=== PATIENT | male | born 1975 | race Caucasian/White ===

== ENCOUNTER 2017-02-07 14:02 | Outpatient (CLI) | payer OTHER, MEDICAID | END 2017-02-07 14:03 | disposition home or self-care (01) | DX: M17.11 Unilateral primary osteoarthritis, right knee (principal) ==

== ENCOUNTER 2017-03-28 12:52 | Outpatient (CLI) | payer MEDICAID | END 2017-03-28 12:53 | disposition home or self-care (01) | DX: M17.11 Unilateral primary osteoarthritis, right knee (principal); S83.241A Other tear of medial meniscus, current injury, right knee, initial encounter; M25.461 Effusion, right knee ==

== ENCOUNTER 2020-04-08 01:10 | Emergency (ER) | payer SELFPAY ==
--- NOTE | 2020-04-08 01:12 | ED Physician Documentation ---
History of Present Illness - Stated complaint Stated Complaint: ABD PX - History obtained from History obtained from: Patient (Patient is a 45-year-old male presents with a chief complaint of abdominal pain after he ate spaghetti tonight. He denies any syncopal episodes or hematuria or flank pain he does report nausea without vomiting denies diarrhea or constipation denies any history of previous abdominal surgeries. Denies any chest pain currently but does report one episode of left-sided chest pain previously that is since resolved. Denies any history of pulmonary embolism or DVT denies any symptoms such as dark urine or tomás colored stools or any jaundice-like symptoms.) Review of Systems Constitutional: reports: Reviewed and negative Eyes: reports: Reviewed and negative Ears: reports: Reviewed and negative Nose: reports: Reviewed and negative Throat: reports: Reviewed and negative Cardiac: reports: Chest pain / pressure Respiratory: reports: Reviewed and negative GI: reports: Abdominal Pain, Nausea : reports: Reviewed and negative Skin: reports: Reviewed and negative Musculoskeletal: reports: Reviewed and negative Neurologic: reports: Reviewed and negative Psychiatric: reports: Reviewed and negative Endocrine: reports: Reviewed and negative Immunocompromised: reports: Reviewed and negative PD PAST MEDICAL HISTORY - Present Medications Home Medications: Ambulatory Orders Medication Instructions Recorded Confirmed Dicyclomine [Bentyl] 10 mg PO QID PRN #7 capsule 04/08/20 Ondansetron Odt [Zofran Odt] 4 mg TL Q6H PRN #10 tablet 04/08/20 - Allergies Allergies/Adverse Reactions: Allergies Allergy/AdvReac Type Severity Reaction Status Date / Time No Known Drug Allergies Allergy Verified 04/08/20 01:22 PD ED PE NORMAL - Vitals Vital signs reviewed: Yes - General General: Alert and oriented X 3, No acute distress, Well developed/nourished - HEENT HEENT: Atraumatic, PERRL - Neck Neck: Supple, no meningeal sign, No JVD - Cardiac Cardiac: RRR, No murmur, Strong equal pulses - Respiratory Respiratory: No respiratory distress, Clear bilaterally - Abdomen Abdomen: Other (The abdomen soft its diffusely tender in the epigastrium there is no ecchymosis there is no midline abdominal pulsatile mass the abdomen soft he has diminished bowel sounds he is voluntarily guarding there is no rebounding no hepatosplenomegaly no CVA tenderness) - Back Back: No CVA TTP, No spinal TTP - Derm Derm: Normal color, Warm and dry, No rash - Extremities Extremities: No deformity, No tenderness to palpate, Normal ROM s pain, No edema, No calf tenderness / cord - Neuro Neuro: Alert and oriented X 3, 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, No motor deficit, No sensory deficit, Normal speech - Psych Psych: Normal mood, Normal affect Results - Vitals Vitals: Vital Signs - 24 hr 04/08/20 04/08/20 04/08/20 01:21 01:42 03:09 Temperature 37.1 C Heart Rate 73 83 77 Respiratory 24 22 18 Rate Blood Pressure 198/116 H 196/113 H 185/115 H O2 Saturation 98 98 93 04/08/20 04:56 Temperature Heart Rate 70 Respiratory 18 Rate Blood Pressure 155/92 H O2 Saturation 96 Oxygen O2 Source Room air - EKG (time done) 01:23 Rate: Other (No STEMI) - Labs Labs: Laboratory Tests 04/08/20 04/08/20 04/08/20 01:35 01:35 01:35 WBC 9.4 RBC 4.90 Hgb 14.7 Hct 42.5 MCV 86.7 MCH 30.0 MCHC 34.6 RDW 13.3 Plt Count 204 MPV 11.2 Neut # (Auto) 7.0 H Lymph # (Auto) 1.7 [place] # (Auto) 0.6 Eos # (Auto) 0.1 Baso # (Auto) 0.0 Absolute Nucleated RBC 0.00 Nucleated RBC % 0.0 PT 12.5 INR 1.1 APTT 29.7 Sodium 136 Potassium 3.2 L Chloride 100 L Carbon Dioxide 28 Anion Gap 8.0 BUN 16 Creatinine 0.7 Estimated GFR (MDRD) 123 Glucose 137 H Lactic Acid Calcium 8.7 Total Bilirubin 0.6 AST 29 ALT 55 Alkaline Phosphatase 77 Troponin I High Sens Total Protein 7.7 Albumin 4.0 Globulin 3.7 Albumin/Globulin Ratio 1.1 Lipase 27 Urine Color Urine Clarity Urine pH Ur Specific [place] Urine Protein Urine Glucose (UA) Urine Ketones Urine Occult Blood Urine Nitrite Urine Bilirubin Urine Urobilinogen Ur Leukocyte Esterase Ur Microscopic Review Urine Culture Comments Urine Opiates Screen Ur Oxycodone Screen Urine Methadone Screen Ur Propoxyphene Screen Ur Barbiturates Screen Ur Tricyclics Screen Ur Phencyclidine Scrn Ur Amphetamine Screen U Methamphetamines Scrn U Benzodiazepines Scrn Urine Cocaine Screen U Cannabinoids Screen Ethyl Alcohol < 5.0 04/08/20 04/08/20 04/08/20 01:35 01:55 02:53 WBC RBC Hgb Hct MCV MCH MCHC RDW Plt Count MPV Neut # (Auto) Lymph # (Auto) [place] # (Auto) Eos # (Auto) Baso # (Auto) Absolute Nucleated RBC Nucleated RBC % PT INR APTT Sodium Potassium Chloride Carbon Dioxide Anion Gap BUN Creatinine Estimated GFR (MDRD) Glucose Lactic Acid 1.5 Calcium Total Bilirubin AST ALT Alkaline Phosphatase Troponin I High Sens 8.5 Total Protein Albumin Globulin Albumin/Globulin Ratio Lipase Urine Color YELLOW Urine Clarity CLEAR Urine pH 6.5 Ur Specific [place] 1.020 Urine Protein NEGATIVE Urine Glucose (UA) NEGATIVE Urine Ketones NEGATIVE Urine Occult Blood NEGATIVE Urine Nitrite NEGATIVE Urine Bilirubin NEGATIVE Urine Urobilinogen 0.2 (NORMAL) Ur Leukocyte Esterase NEGATIVE Ur Microscopic Review NOT INDICATED Urine Culture Comments NOT INDICATED Urine Opiates Screen NEGATIVE Ur Oxycodone Screen NEGATIVE Urine Methadone Screen NEGATIVE Ur Propoxyphene Screen NEGATIVE Ur Barbiturates Screen NEGATIVE Ur Tricyclics Screen NEGATIVE Ur Phencyclidine Scrn NEGATIVE Ur Amphetamine Screen NEGATIVE U Methamphetamines Scrn NEGATIVE U Benzodiazepines Scrn NEGATIVE Urine Cocaine Screen NEGATIVE U Cannabinoids Screen NEGATIVE Ethyl Alcohol PD MEDICAL DECISION MAKING - ED course Complexity details: reviewed results, re-evaluated patient (pain improved), considered differential (Patient with epigastric pain after eating differential diagnosis would be GERD, gastritis, peptic ulcer disease, cholecystitis, ch olelithiasis, pancreatitis unlikely but also on the differential would be ACS.), d/w patient (unsure of Etiology of the patient's pain is lab work and imaging are unremarkable his pain is improved at this point and he feels good enough to go home will encourage close follow-up and he should return the emergency department with any concerns.) Departure - Departure Disposition: 01 Home, Self Care Clinical Impression: Abdominal pain Qualifiers: Abdominal location: unspecified location Qualified Code(s): R10.9 - Unspecified abdominal pain Condition: Stable Instructions: ED Abdominal Pain Unkn Cause Follow-Up: your, doctor [Other] Prescriptions: Dicyclomine [Bentyl] 10 mg PO QID PRN #7 capsule PRN Reason: Abdominal Pain Ondansetron Odt [Zofran Odt] 4 mg TL Q6H PRN #10 tablet PRN Reason: Nausea / Vomiting
[2020-04-08] MEDS ORDERED: SODIUM CHLORIDE 0.9% 1,000 ML IV ONE (01:43)
[2020-04-08] MEDS ORDERED: ONDANSETRON 4 MG/2 ML VIAL IVP STA (01:43)
[2020-04-08] MEDS ORDERED: MORPHINE 2 MG/ML CARPUJECT IVP STA (01:43)
[2020-04-08 01:46] LABS: BASOPHILS % (AUTO) 0.4 %; EOSINOPHILS # (AUTO) 0.1 10^3/uL (0.0-0.7); EOSINOPHILS % (AUTO) 1.1 %; HGB - HEMOGLOBIN 14.7 g/dL (14.0-18.0); LYMPHOCYTES # (AUTO) 1.7 10^3/uL (1.5-3.5); LYMPHOCYTES % (AUTO) 17.5 %; MEAN CORPUSCULAR HGB CONC 34.6 g/dL (32.0-36.0); MEAN CORPUSCULAR VOLUME 86.7 fL (80.0-94.0); MEAN PLATELET VOLUME 11.2 fL (7.4-11.4); MONOCYTES # (AUTO) 0.6 10^3/uL (0.0-1.0); MONOCYTES % (AUTO) 6.8 %; NEUTROPHILS % (AUTO) 73.9 %; PLT - PLATELET COUNT 204 10^3/uL (130-450); RED CELL DISTRIBUTION WIDTH 13.3 % (12.0-15.0); WHITE BLOOD COUNT 9.4 x10^3/uL (4.8-10.8)
[2020-04-08 01:55] LABS: INR 1.1 (0.8-1.2); PT - PROTHROMBIN TIME 12.5 secs (9.9-12.6)
[2020-04-08 01:56] LABS: ALBUMIN/GLOBULIN RATIO 1.1 (1.0-2.2); ALKALINE PHOSPHATASE 77 IU/L (42-121); ALT ALANINE AMINOTRANSFERASE 55 IU/L (10-60); AST ASPARTATE AMINOTRANSFERASE 29 IU/L (10-42); BILIRUBIN,TOTAL 0.6 mg/dL (0.2-1.0); BUN - BLOOD UREA NITROGEN 16 mg/dL (6-20); CALCIUM 8.7 mg/dL (8.5-10.3); CARBON DIOXIDE - CO2 28 mmol/L (21-32); CHLORIDE 100 mmol/L (101-111); CREATININE 0.7 mg/dL (0.6-1.2); GLUCOSE 137 mg/dL (70-100); LIPASE 27 U/L (22-51); SODIUM 136 mmol/L (135-145); TOTAL PROTEIN 7.7 g/dL (6.7-8.2)
[2020-04-08 02:02] LABS: PARTIAL THROMBOPLASTIN TIME 29.7 secs (24.9-33.3)
--- NOTE | 2020-04-08 02:15 | XRAY Report ---
Reason: cp Procedure Date: 04/08/2020 Accession Number: [id number] / [id number] Procedure: XR - Chest 1 View X-Ray CPT Code: 28460 Final Report FULL RESULT: EXAM: CHEST RADIOGRAPHY EXAM DATE: 04/08/2020 02:02 AM CLINICAL HISTORY: Chest pain. COMPARISON: None. TECHNIQUE: 1 view. FINDINGS: Lungs/Pleura: Clear lungs. No pleural effusion. No pneumothorax. Mediastinum: Within exam limitations, the cardiomediastinal contour is normal. Other: None. IMPRESSION: No acute cardiopulmonary process. RADIA
[2020-04-08] MEDS ORDERED: diphenhydrAMINE ELIXIR 25 MG/10 ML UDC PO STA (02:25)
[2020-04-08] MEDS ORDERED: MAG HYDROX/AL HYDROX/SIMETH 30 ML UDC PO STA (02:26)
[2020-04-08] MEDS ORDERED: LIDOCAINE VISCOUS 2% 15 ML UDC MM STA (02:26)
[2020-04-08] MEDS ORDERED: IOVERSOL 320 100 ML VIAL IVP ONE ×2 (02:27→03:14)
[2020-04-08] MEDS ORDERED: HYDROmorphone 0.5 MG/0.5 ML SYRINGE IVP STA ×2 (02:32→04:41)
[2020-04-08] MEDS ORDERED: HYDROmorphone 0.5 MG/0.5 ML SYRINGE ONE (02:46)
[2020-04-08] MEDS ORDERED: GI COCKTAIL 120 ML BOTTLE PO ONE ×2 (02:47→03:00)
[2020-04-08 02:57] LABS: MUDS CUTOFF CONCENTRATIONS CUTOFF CONC BELOW:
[2020-04-08 03:02] LABS: BILIRUBIN,URINE NEGATIVE (NEGATIVE); GLUCOSE, URINE (UA) NEGATIVE (NEGATIVE); KETONES,URINE (UA) NEGATIVE (NEGATIVE); LEUKOCYTE ESTERASE, URINE NEGATIVE (NEGATIVE); NITRITE,URINE NEGATIVE (NEGATIVE); OCCULT BLOOD,URINE NEGATIVE (NEGATIVE); PH,URINE 6.5 PH (5.0-7.5); PROTEIN,URINE NEGATIVE (NEGATIVE); UROBILINOGEN,URINE 0.2 (NORMAL) E.U./dL (NORMAL)
[2020-04-08 03:03] LABS: CLARITY,URINE CLEAR (CLEAR)
[2020-04-08 03:11] LABS: AMPHETAMINE SCREEN,URINE NEGATIVE (NEGATIVE); BENZODIAZEPINES SCREEN, URINE NEGATIVE (NEGATIVE); COCAINE SCREEN URINE NEGATIVE (NEGATIVE); METHADONE SCREEN, URINE NEGATIVE (NEGATIVE); METHAMPHETAMINES SCREEN, URINE NEGATIVE (NEGATIVE); OPIATE SCREEN, URINE NEGATIVE (NEGATIVE); TRICYCLIC ANTIDEPRESSANT,URINE NEGATIVE (NEGATIVE)
[2020-04-08 03:12] LABS: OXYCODONE SCREEN, URINE NEGATIVE (NEGATIVE); PROPOXYPHENE SCREEN, URINE NEGATIVE (NEGATIVE)
--- NOTE | 2020-04-08 03:41 | CT Report ---
Reason: abd pain Procedure Date: 04/08/2020 Accession Number: [id number] / [id number] Procedure: CT - Abdomen/Pelvis W CPT Code: Final Report FULL RESULT: EXAM: CT ABDOMEN AND PELVIS EXAM DATE:04/08/2020 03:12 AM CLINICAL HISTORY: Abd pain. COMPARISONS: None. TECHNIQUE: Routine helical CT imaging was performed through the abdomen and pelvis with OPTIRAY 320 IV contrast. Oral contrast: No. Reconstructions: Coronal and sagittal. In accordance with CT protocol optimization, one or more of the following dose reduction techniques were utilized for this exam: automated exposure control, adjustment of mA and/or KV based on patient size, or use of iterative reconstruction technique. FINDINGS: Lung Bases: Clear lung bases. No pleural effusion. Liver: Unremarkable. Gallbladder/Bile Ducts: Unremarkable. Spleen: Unremarkable. Pancreas: Unremarkable. Adrenal Glands: 14 mm right adrenal nodule. Kidneys: Unremarkable. No hydronephrosis. Simple left cysts - No imaging follow-up is recommended per consensus recommendations based on imaging criteria. Peritoneal Cavity/Bowel: Colonic diverticula. Otherwise, the bowel is normal in caliber. No free fluid, free air or lymphadenopathy. The appendix is normal. Pelvic Organs: Unremarkable. The bladder and visualized pelvic organs appear normal. Vasculature: Unremarkable. Bones: Unremarkable. Other: None. IMPRESSION: 1. No acute intra-abdominal or pelvic process. 2. Colonic diverticulosis. 3. 14 mm right adrenal nodule. Probably benign, consider 12 month interval surveillance with dedicated adrenal CT. RADIA
[2020-04-08] MEDS ORDERED: HYDROmorphone 1 MG/ML CARPUJECT IVP STA (04:42)
[2020-04-08 05:59] VITALS: BP 168/87
== END 2020-04-08 06:07 | disposition home or self-care (01) ==
LOC: ED 01:10
DX: R10.13 Epigastric pain (principal); R11.0 Nausea; R07.9 Chest pain, unspecified
CPT/HCPCS: 36415; 71045; 74177; 80053; 80320; 81003; 83605; 83690; 84484; 85025; 85610; 85730; 93005; 96361; 96374; 96375; 96376; 99284; A9270; J1170; Q9967; 80306; 81001; 87086

== ENCOUNTER 2020-04-16 11:20 | Observation (INO) | payer MEDICAID ==
[2020-04-16 12:13] LABS: BASOPHILS # (AUTO) 0.1 10^3/uL (0.0-0.1); BASOPHILS % (AUTO) 0.6 %; EOSINOPHILS # (AUTO) 0.4 10^3/uL (0.0-0.7); EOSINOPHILS % (AUTO) 3.8 %; HGB - HEMOGLOBIN 15.2 g/dL (14.0-18.0); LYMPHOCYTES # (AUTO) 1.8 10^3/uL (1.5-3.5); LYMPHOCYTES % (AUTO) 17.8 %; MEAN CORPUSCULAR HEMOGLOBIN 30.1 pg (27.0-31.0); MEAN CORPUSCULAR HGB CONC 34.4 g/dL (32.0-36.0); MEAN CORPUSCULAR VOLUME 87.5 fL (80.0-94.0); MEAN PLATELET VOLUME 10.8 fL (7.4-11.4); MONOCYTES # (AUTO) 0.8 10^3/uL (0.0-1.0); MONOCYTES % (AUTO) 8.5 %; NEUTROPHILS # (AUTO) 6.8 10^3/uL (1.5-6.6); NEUTROPHILS % (AUTO) 68.9 %; PLT - PLATELET COUNT 220 10^3/uL (130-450); RED BLOOD COUNT 5.05 10^6/uL (4.70-6.10); RED CELL DISTRIBUTION WIDTH 13.2 % (12.0-15.0); WHITE BLOOD COUNT 9.8 x10^3/uL (4.8-10.8)
[2020-04-16 12:31] LABS: ALBUMIN 4.1 g/dL (3.2-5.5); ALBUMIN/GLOBULIN RATIO 1.1 (1.0-2.2); BILIRUBIN,TOTAL 0.9 mg/dL (0.2-1.0); CREATININE 0.8 mg/dL (0.6-1.2); TOTAL PROTEIN 7.9 g/dL (6.7-8.2)
--- NOTE | 2020-04-16 14:10 | ED Physician Documentation ---
PD HPI ABD PAIN - Stated complaint Stated Complaint: STOMACH PAIN - Chief complaint Chief Complaint: Abd Pain - History obtained from History obtained from: Patient - History of Present Illness Timing - onset: How many days ago (8) Timing - duration: Days (8) Timing - details: Gradual onset, Still present, Waxing and waning Quality: Cramping, Sharp, Pain Location: RUQ Radiation: Left flank Improved by: Vomiting Worsened by: Position, Palpation Associated symptoms: Nausea, Vomiting Similar symptoms before: Has not had sx before Recently seen: Emergency Dept - Additional information Additional information: 45-year-old male developed right upper quadrant abdominal pain 3 days ago after eating spaghetti. He was seen in the emergency department had a CT scan of the abdomen pelvis done his pain resolved and he went back home. 3 days ago he had return of his painWhile he was at work he was able to drive home he has been home over the weekend with a heating pack on his abdomen. He has persistence of this pain and nausea. He has been able to drink water and he has been able to eat some food although is on a limited brat diet. He has not had fever. He has not had this issue with abdominal pain previously. He states that he is "like a bili goat "he can just eat just about anything Review of Systems Constitutional: reports: Fatigue. denies: Fever, Chills Eyes: denies: Decreased vision Ears: denies: Ear pain Nose: denies: Rhinorrhea / runny nose, Congestion Throat: denies: Sore throat Cardiac: denies: Chest pain / pressure, Palpitations Respiratory: denies: Dyspnea, Cough GI: reports: Abdominal Pain, Nausea, Vomiting. denies: Constipation, Diarrhea : denies: Dysuria, Frequency Skin: denies: Rash Musculoskeletal: denies: Neck pain, Back pain, Extremity pain Neurologic: denies: Generalized weakness, Focal weakness, Numbness PD PAST MEDICAL HISTORY - Past Medical History Past Medical History: No - Past Surgical History Past Surgical History: No - Present Medications Home Medications: Ambulatory Orders Medication Instructions Recorded Confirmed No Known Home Medications 04/16/20 04/16/20 - Allergies Allergies/Adverse Reactions: Allergies Allergy/AdvReac Type Severity Reaction Status Date / Time No Known Drug Allergies Allergy Verified 04/16/20 11:45 - Social History Does the pt smoke?: No Smoking Status: Never smoker Does the pt drink ETOH?: No Does the pt have substance abuse?: No - Immunizations Immunizations are current?: Yes PD ED PE NORMAL - Vitals Vital signs reviewed: Yes (Hypertensive) - General General: Alert and oriented X 3, No acute distress, Well developed/nourished - HEENT HEENT: Atraumatic, PERRL, EOMI - Neck Neck: Supple, no meningeal sign - Cardiac Cardiac: RRR, No murmur - Respiratory Respiratory: No respiratory distress, Clear bilaterally - Abdomen Abdomen: Soft, Other (Right upper quadrant tenderness to palpation with minimal guarding and rebound tenderness. He does have reproducible tenderness right upper quadrant and pain to the right kidney with bimanual palpation of the right kidney as well. Left is clear. 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, No motor deficit, No sensory deficit, Normal speech Eye Opening: Spontaneous Motor: Obeys Commands Verbal: Oriented GCS Score: 15 - Psych Psych: Normal mood, Normal affect Results - Vitals Vitals: Vital Signs - 24 hr 04/16/20 04/16/20 04/16/20 11:42 11:45 13:45 Temperature 36.6 C Heart Rate 95 98 92 Respiratory 18 18 18 Rate Blood Pressure 157/101 H 142/72 H 146/77 H O2 Saturation 98 98 96 04/16/20 15:45 Temperature Heart Rate 104 H Respiratory Rate Blood Pressure 138/84 H O2 Saturation Oxygen O2 Source Room air - Labs Labs: Laboratory Tests 04/16/20 04/16/20 12:08 12:08 WBC 9.8 RBC 5.05 Hgb 15.2 Hct 44.2 MCV 87.5 MCH 30.1 MCHC 34.4 RDW 13.2 Plt Count 220 MPV 10.8 Neut # (Auto) 6.8 H Lymph # (Auto) 1.8 [place] # (Auto) 0.8 Eos # (Auto) 0.4 Baso # (Auto) 0.1 Absolute Nucleated RBC 0.00 Nucleated RBC % 0.0 Sodium 139 Potassium 3.4 L Chloride 100 L Carbon Dioxide 27 Anion Gap 12.0 BUN 13 Creatinine 0.8 Estimated GFR (MDRD) 105 Glucose 105 H Calcium 9.0 Total Bilirubin 0.9 AST 24 ALT 46 Alkaline Phosphatase 63 Total Protein 7.9 Albumin 4.1 Globulin 3.8 Albumin/Globulin Ratio 1.1 Lipase 27 - Rads (name of study) GB u/s Radiology: Prelim report reviewed (Impression: 1. Cholelithiasis and nonspecific mild gallbladder wall thickening. Minimal pericholecystic fluid or edema. Correlate clinically for evidence of acute cholecystitis. Nuclear medicine hepatobiliary imaging could be performed to further evaluate as clinically warranted. 2 Echogenic partially shadowing non-mobile structure at the gallbladder fundus measuring up to 22 mm possibly nonmobile gallstones or tumefactive sludge, versus polyp. Suggest follow-up below. 3. Common bile duct is normal caliber. 4. Probable fatty liver.), EMP read indepedently, See rad report Procedures - Bedside sono Bedside sono by EMP: With use of bedside ultrasound the right upper quadrant is imaged the gallbladder does appear distended there are no obvious stones or shadowing. There is a thickened gallbladder wall measuring 0.6 cm and there is a thin rim of fluid anteriorly. The gallbladder itself is sonographically tender and reproduces the pain the patient is experiencing. PD MEDICAL DECISION MAKING - ED course Complexity details: reviewed old records, reviewed results, re-evaluated patient, considered differential, d/w patient ED course: 45-year-old male with acute right upper quadrant abdominal pain present for 3 days. On physical exam he has right upper quadrant tenderness on bedside ultrasound exam he has a swollen tender edematous gallbladder with specific tenderness. He has cholecystitis clinically. Dr. Wright is consulted in the case nd graciously agrees to care for the patient in the hospital. Departure - Departure Disposition: 66 [facility] DC/Xfer Clinical Impression: Cholelithiasis Qualifiers: Cholelithiasis location: gallbladder Cholecystitis presence: with cholecystitis Cholecystitis acuity: acute Biliary obstruction: without biliary obstruction Qualified Code(s): K80.00 - Calculus of gallbladder with acute cholecystitis without obstruction
[2020-04-16] MEDS ORDERED: ONDANSETRON 4 MG/2 ML VIAL IVP STA (14:11)
[2020-04-16] MEDS ORDERED: KETOROLAC 30 MG/ML VIAL IVP STA (14:11)
--- NOTE | 2020-04-16 15:52 | Ultrasound Report ---
Reason: persistent RUQ pain Procedure Date: 04/16/2020 Accession Number: [id number] / [id number] Procedure: US - Abdomen Limited CPT Code: Final Report FULL RESULT: EXAM: ABDOMEN ULTRASOUND LIMITED, RUQ EXAM DATE: 04/16/2020 03:25 PM. CLINICAL HISTORY: Persistent RUQ pain. COMPARISON: ABDOMEN/PELVIS W 04/08/2020 2:59 AM. TECHNIQUE: Real-time scanning was performed with static images obtained. FINDINGS: Liver: Mildly inhomogeneous, increased echogenicity, suggesting diffuse fatty infiltration.No focal lesion. Liver measures 16.6 cm craniocaudally. Main portal vein flow: Hepatopetal. Gallbladder: Moderately distended gallbladder. Nonspecific mild gallbladder wall thickening. Minimal pericholecystic fluid or edema.Non-mobile shadowing echogenic focus measuring 12 mm near the gallbladder neck. Echogenic partially shadowing non-mobile foci near the gallbladder fundus measuring up to 22 mm.Assessment of sonographic Pardo sign precluded by recent pain medication administration. Biliary System: Common bile duct measures 4 mm. No intrahepatic ductal dilatation. Pancreas: Visualized portion is unremarkable. Right Kidney: 12.9 cm longitudinally. Normal echotexture.No hydronephrosis.No contour-deforming mass.No calculus. Other: IMPRESSION: 1. Cholelithiasis with nonspecific mild gallbladder wall thickening, minimal pericholecystic fluid or edema. Correlate clinically for evidence of acute cholecystitis. Nuclear medicine hepatobiliary imaging could be performed for further evaluation as clinically warranted. 2. Echogenic partially shadowing non-mobile structure at the gallbladder fundus measuring up to 22 mm, possibly non-mobile gallstones or tumefactive sludge, versus polyp. Suggested follow-up below. 3. Common bile duct is normal caliber. 4. Probable fatty liver. Suggested followup of gallbladder polyps: (Eur Radiol. 2017 Aug;27(9):0938-4367) Polyp >10 mm: Increased risk of malignancy, cholecystectomy recommended. Polyp <10 mm: -Symptoms attributed to the gallbladder: cholecystectomy suggested if no other cause for the symptoms determined (polyp may be indicative of underlying occult calculus or inflammation) -If the patient has risk factors* for gallbladder malignancy: --Polyp <6 mm ---Follow-up ultrasound at 6 months, then yearly for 5 years ---Increase in size =2 mm: consider cholecystectomy --Polyp >6 mm: ---Consider cholecystectomy -If the patient has no risk factors* for gallbladder malignancy: --Polyp <6 mm: follow-up ultrasound at 1, 3 and 5 years --Polyp >6 mm: ---Follow up ultrasound at 6 months, then yearly for 5 years ---Increase in size =2 mm: consider cholecystectomy *Risk factors for gallbladder malignancy: >50 years, primary sclerosing cholangitis, [place] ethnicity, sessile polyp (including focal wall thickening >4 mm). RADIA
[2020-04-16] MEDS ORDERED: SODIUM CHLORIDE 0.9% 1,000 ML IV STA (16:16)
[2020-04-16] MEDS ORDERED: AMPICILLIN/SULBACTAM 3 GM in SODIUM CHLORIDE 0.9% MINIBAG 100 ML IV STA (17:26)
[2020-04-16 18:52] LABS: BILIRUBIN,URINE NEGATIVE (NEGATIVE); GLUCOSE, URINE (UA) NEGATIVE (NEGATIVE); KETONES,URINE (UA) 15 mg/dL (NEGATIVE); LEUKOCYTE ESTERASE, URINE NEGATIVE (NEGATIVE); NITRITE,URINE NEGATIVE (NEGATIVE); OCCULT BLOOD,URINE NEGATIVE (NEGATIVE); PROTEIN,URINE TRACE mg/dL (NEGATIVE); UROBILINOGEN,URINE 0.2 (NORMAL) E.U./dL (NORMAL)
[2020-04-16 18:55] LABS: CLARITY,URINE CLEAR (CLEAR)
[2020-04-16] MEDS ORDERED: HYDROmorphone 0.5 MG/0.5 ML SYRINGE IVP PRN (21:19)
--- NOTE | 2020-04-16 22:29 | HISTORY & PHYSICAL EXAMINATION ---
Chief Complaint - Chief Complaint Chief Complaint: right upper quadrant pain for several days. not improving. not feeling we Abdominal Pain HPI - History Obtained From History obtained from: Family Exam limitations: No limitations - History of Present Illness Severity at the worst: Moderate Pain Quality: Sharp Timing: Abrupt onset, Constant Duration: Days: Improved with: Nothing Worsened by: Movement PMH/PSH - Past Medical History MRSA Hx?: No Social & Family Hx - Social History Does the pt smoke?: No Smoking Status: Never smoker Does the pt drink ETOH?: No Does the pt have substance abuse?: No Meds/Allgy - Home Medications Home Medications: Ambulatory Orders Medication Instructions Recorded Confirmed No Known Home Medications 04/16/20 04/16/20 - Allergies Allergies/Adverse Reactions: Allergies Allergy/AdvReac Type Severity Reaction Status Date / Time No Known Drug Allergies Allergy Verified 04/16/20 11:45 Review of Systems - Other Findings Other Findings: 10 pt ros otherwise unremarkable. has never had similar symptoms Exam - Vital Signs Vital Signs: Vital Signs x48h Temp Pulse Pulse Resp BP BP Pulse Ox 04/16/20 22:06 37.5 C 79 16 171/96 H 94 04/16/20 21:34 37.1 C 69 20 176/116 H 98 04/16/20 15:45 104 H 138/84 H - Physical Exam General Appearance: positive: No acute distress, Alert, Other (no distress but obviously in pain) Eyes Bilateral: positive: Normal inspection, PERRL, EOMI, No scleral icterus Neck: positive: No JVD Respiratory: positive: No respiratory distress Cardiovascular: positive: Regular rate & rhythm Abdomen: positive: No distention, Tenderness (ruq) Extremities: positive: Nml appearance Neurologic/Psychiatric: positive: Oriented x3 Results - Lab Results Fish Bones: 04/16/20 12:08 04/16/20 12:08 Other Lab Results: Lab Results x24hrs 04/16/20 04/16/20 04/16/20 Range/Units 18:30 12:08 12:08 WBC 9.8 (4.8-10.8) x10^3/uL RBC 5.05 (4.70-6.10) 10^6/uL Hgb 15.2 (14.0-18.0) g/dL Hct 44.2 (42.0-52.0) % MCV 87.5 (80.0-94.0) fL MCH 30.1 (27.0-31.0) pg MCHC 34.4 (32.0-36.0) g/dL RDW 13.2 (12.0-15.0) % Plt Count 220 (130-450) 10^3/uL MPV 10.8 (7.4-11.4) fL Neut # (Auto) 6.8 H (1.5-6.6) 10^3/uL Lymph # (Auto) 1.8 (1.5-3.5) 10^3/uL [place] # (Auto) 0.8 (0.0-1.0) 10^3/uL Eos # (Auto) 0.4 (0.0-0.7) 10^3/uL Baso # (Auto) 0.1 (0.0-0.1) 10^3/uL Absolute Nucleated RBC 0.00 x10^3/uL Nucleated RBC % 0.0 /100WBC Sodium 139 (135-145) mmol/L Potassium 3.4 L (3.5-5.0) mmol/L Chloride 100 L (101-111) mmol/L Carbon Dioxide 27 (21-32) mmol/L Anion Gap 12.0 (6-13) BUN 13 (6-20) mg/dL Creatinine 0.8 (0.6-1.2) mg/dL Estimated GFR (MDRD) 105 (>89) Glucose 105 H (70-100) mg/dL Calcium 9.0 (8.5-10.3) mg/dL Total Bilirubin 0.9 (0.2-1.0) mg/dL AST 24 (10-42) IU/L ALT 46 (10-60) IU/L Alkaline Phosphatase 63 (42-121) IU/L Total Protein 7.9 (6.7-8.2) g/dL Albumin 4.1 (3.2-5.5) g/dL Globulin 3.8 (2.1-4.2) g/dL Albumin/Globulin Ratio 1.1 (1.0-2.2) Lipase 27 (22-51) U/L Urine Color YELLOW Urine Clarity CLEAR (CLEAR) Urine pH 6.0 (5.0-7.5) PH Ur Specific [place] 1.025 (1.002-1.030) Urine Protein TRACE (NEGATIVE) mg/dL Urine Glucose (UA) NEGATIVE (NEGATIVE) mg/dL Urine Ketones 15 H (NEGATIVE) mg/dL Urine Occult Blood NEGATIVE (NEGATIVE) Urine Nitrite NEGATIVE (NEGATIVE) Urine Bilirubin NEGATIVE (NEGATIVE) Urine Urobilinogen 0.2 (NORMAL) (NORMAL) E.U./dL Ur Leukocyte Esterase NEGATIVE (NEGATIVE) Ur Microscopic Review NOT INDICATED Urine Culture Comments NOT INDICATED - Other Other Results/Comments: gallstones and thickened gallbladder. stone in the neck of the gallbladder Impression/Plan - Problem List Problem List: cholecystitis. not improving plan lap lamont. parq held and consent obtained
[2020-04-16] MEDS: LACTATED RINGERS 1,000 ML IV SCH (22:48)
[2020-04-17] MEDS: AMPICILLIN/SULBACTAM 3 GM in SODIUM CHLORIDE 0.9% MINIBAG 100 ML IV SCH ×3 (00:47→13:37)
[2020-04-17] MEDS: SODIUM CHLORIDE FLUSH 0.9% 10 ML SYRINGE IVP SCH ×2 (00:50→08:12)
[2020-04-17] MEDS: SODIUM CHLORIDE FLUSH 0.9% 10 ML SYRINGE IVP PRN ×2 (03:00→05:54)
[2020-04-17] MEDS: LACTATED RINGERS 1,000 ML IV SCH (08:12)
[2020-04-17] MEDS ORDERED: BUPIVACAINE 0.25% PF 30 ML VIAL ONE (08:19)
--- NOTE | 2020-04-17 08:20 | ANESTHESIA ---
Pre-Anesthesia VS, & Labs - Diagnosis abd pain, cholecystitis - Procedure Lap Nicki Vital Signs: Temp Pulse Resp BP Pulse Ox 36.8 C 73 18 161/90 H 94 04/17/20 08:00 04/17/20 08:00 04/17/20 08:00 04/17/20 08:00 04/17/20 08:00 Height 5 ft 10 in Weight (kg) 109 kg Body Mass Index 34.4 - NPO >8 hours - Lab Results Current Lab Results: Laboratory Tests 04/16/20 12:08: Sodium 139, Potassium 3.4 L, Chloride 100 L, Carbon Dioxide 27, Anion Gap 12.0, BUN 13, Creatinine 0.8, Estimated GFR (MDRD) 105, Glucose 105 H, Calcium 9.0, Total Bilirubin 0.9, AST 24, ALT 46, Alkaline Phosphatase 63, Total Protein 7.9, Albumin 4.1, Globulin 3.8, Albumin/Globulin Ratio 1.1, Lipase 27 04/16/20 12:08: WBC 9.8, RBC 5.05, Hgb 15.2, Hct 44.2, MCV 87.5, MCH 30.1, MCHC 34.4, RDW 13.2, Plt Count 220, MPV 10.8, Neut # (Auto) 6.8 H, Lymph # (Auto) 1.8, Pratt # (Auto) 0.8, Eos # (Auto) 0.4, Baso # (Auto) 0.1, Absolute Nucleated RBC 0.00, Nucleated RBC % 0.0 Fish Bones: 04/16/20 12:08 04/16/20 12:08 Home Medications and Allergies Home Medications: Ambulatory Orders No Known Home Medications 04/16/20 Active Medications Hydromorphone HCl (Dilaudid Inj Syringe) 0.5 mg IVP Q2H PRN PRN Reason: Pain 8 to 10 Last Admin: 04/16/20 22:44 Dose: 0.5 mg Lactated Ringer's (Lr) 1,000 mls @ 125 mls/hr IV .Q8H [facility] Last Admin: 04/17/20 08:12 Dose: 125 mls/hr Ampicillin Sodium/Sulbactam (Sodium 3 gm/ Sodium Chloride) 100 mls @ 200 mls/hr IV Q6HR JOSEPH Last Infusion: 04/17/20 08:12 Dose: Infused Sodium Chloride (Normal Saline Flush 0.9%) 10 ml IVP PRN PRN PRN Reason: NEEDED PER PROVIDER ORDERS Last Admin: 04/17/20 05:54 Dose: 10 ml Sodium Chloride (Normal Saline Flush 0.9%) 10 ml IVP 0100,0900,1700 JOSEPH Last Admin: 04/17/20 08:12 Dose: Not Given No Known Home Medications 04/16/20 Allergies/Adverse Reactions: Allergies Allergy/AdvReac Type Severity Reaction Status Date / Time No Known Drug Allergies Allergy Verified 04/16/20 11:45 Anes History & Medical History - Anesthetic History Anesthesia Complications: reports: No previous complications (no previous anesthetic history), Other-see comment (denies any family history of anesthesia related complications) Family history of Anesthesia Complications: Denies Family history of Malignant Hyperthermia: Denies - Medical History Cardiovascular: reports: None Pulmonary: reports: None Gastrointestinal: reports: Cholelithiasis Urinary: reports: None Neuro: reports: None, Headaches Musculoskeletal: reports: None, Osteoarthritis (reports arthritis in knees), Chronic back pain, Other Endocrine/Autoimmune: reports: None Blood Disorders: reports: None Skin: reports: None Smoking Status: Never smoker Psychosocial: reports: No issues indicated Other Past Medical History: will have knee sugery in the future Exam General: Alert, Oriented x3, Cooperative, No acute distress Dental: WNL Mouth Openin Fingerbreadth Mallampati classification: III Thyromental Distance: 4-6 cm Respiratory: Lungs clear, Normal breath sounds, No respiratory distress, No accessory muscle use Cardiovascular: Regular rate, Normal S1, Normal S2, No murmurs Abdomen: Normal bowel sounds, Soft, No tenderness, No hepatospenomegaly, No masses Extremities: No clubbing, No cyanosis, No edema, Normal pulses, No tenderness/swelling Neurological: Normal gait, Normal speech, Strength at 5/5 X4 ext, Normal tone, Sensation intact, Cranial nerves 3-12 NL, Reflexes 2+ Mental/Cognitive Status: Alert/Oriented X3, Normal for patient Cognitive Status: Within normal limits Plan Anesthesia Type: General Consent for Procedure(s) Verified and Reviewed: Yes Code Status: Attempt Resuscitation ASA classification: 2-Mild systemic disease Is this case an emergency?: No
[2020-04-17] MEDS ORDERED: DEXAMETHASONE 4 MG/ML VIAL IVP ONE (08:46)
[2020-04-17] MEDS ORDERED: LIDOCAINE-MPF 2% 5 ML VIAL IM ONE (08:46)
[2020-04-17] MEDS ORDERED: ACETAMINOPHEN 1,000 MG/100 ML 100 ML IV ONE (08:46)
[2020-04-17] MEDS ORDERED: MIDAZOLAM 2 MG/2 ML VIAL IVP ONE (08:46)
[2020-04-17] MEDS ORDERED: PROPOFOL 200 MG/20 ML VIAL IVP ONE (08:46)
[2020-04-17] MEDS ORDERED: fentaNYL 100 MCG/2 ML VIAL IVP ONE (08:46)
[2020-04-17] MEDS ORDERED: ROCURONIUM 50 MG/5 ML VIAL IVP ONE (08:46)
--- NOTE | 2020-04-17 08:53 | PHARMACY PROGRESS NOTE ---
- Best Possible Medication History Admit Date and Time: 04/16/202118 Processed by: Nursing Medication History completed: Yes Patient Interview: Pt interview ONLY source Secondary Source(s): Pharmacy records, Insurance records As the person ultimately responsible for medication therapy, providers are able to order a medication from an existing home medication list in [facility] via the "Reconcile Routine" prior to Confirmation of that medication by residential support specialist. Such practice is discouraged except when the physician, in their clinical judgment, deems that a medical need exists for a medication without regard to previous use.
[2020-04-17] MEDS ORDERED: LACTATED RINGERS 1,000 ML IV ONE ×2 (10:01→11:14)
[2020-04-17] MEDS ORDERED: BUPIVACAINE 0.25% PF 30 ML VIAL SUBQ ONE (11:15)
[2020-04-17] MEDS ORDERED: ACETAMINOPHEN 325 MG TABLET PO PRN (11:59)
[2020-04-17] MEDS ORDERED: oxyCODONE 5 MG TABLET PO PRN (11:59)
[2020-04-17] MEDS ORDERED: HYDROcod/ACETAM 5/325 MG TABLET PO PRN (11:59)
[2020-04-17] MEDS ORDERED: ONDANSETRON 4 MG/2 ML VIAL IVP PRN (11:59)
[2020-04-17] MEDS ORDERED: IBUPROFEN 600 MG TABLET PO PRN (11:59)
[2020-04-17] MEDS: fentaNYL 100 MCG/2 ML VIAL ONE ×3 (12:30→12:38)
[2020-04-17 15:57] VITALS: BP 163/95
--- NOTE | 2020-04-17 20:15 | OPERATIVE REPORT ---
DATE OF SERVICE: 04/17/2020 Physician: Justyn Wright MD PREOPERATIVE DIAGNOSIS: Cholecystitis. POSTOPERATIVE DIAGNOSIS: Cholecystitis, near gangrenous. PROCEDURE PERFORMED: Laparoscopic cholecystectomy. SURGEON: Raymundo Wright MD INSURANCE BILLING SPECIALIST: None. ANESTHESIA 1. General endotracheal anesthesia. 2. Local anesthesia with Marcaine. COMPLICATIONS: None. SPECIMENS: Gallbladder. ESTIMATED BLOOD LOSS: 25 mL SPECIMENS: None. FINDINGS: Healthy normal-appearing liver with perhaps a very mild fatty change. A tense gallbladder, which was black on the inside, obstructing stone in the neck of the gallbladder was present. INDICATIONS FOR PROCEDURE: Patient is a healthy, previously well 45-year-old gentleman with acute onset right upper quadrant pain several days ago. It has not improved. He has been feeling ill. He has not had signs or symptoms of choledocholithiasis. Ultrasound was obtained showing gallstones, plus a gallstone wedged in the neck of the gallbladder. He presents for urgent cholecystectomy. Risks discussed. Alternatives discussed. All questions answered and consent obtained. DETAILS OF PROCEDURE: Patient was properly identified, brought to the operating room and placed in supine position. He voided prior to surgery. General endotracheal anesthesia was induced. Sequential compression devices and orogastric tube were placed. He was prepped and draped in a sterile fashion. He was admitted the evening prior to surgery and was getting antibiotics every 6 hours. Local anesthetic was given to incision areas. Patient had mild weakness at his umbilicus and a mild diastasis. Incision was made approximately 4 cm cephalad and 4 cm right lateral of his umbilicus. Dissection proceeded down to the fascia. The fascia was incised and lifted upwards and the abdomen entered with the Veress needle. CO2 was insufflated to a pressure of 15. An 11 mm trocar was placed, followed by a 30-degree scope. There was no evidence of injury from Veress needle or trocar placement. Under direct vision, two 5 mm trocars were placed in the right upper quadrant and a 10 mm trocar was placed in the epigastrium. He had omentum encasing his gallbladder. The omentum was carefully peeled away. The gallbladder was very tense and inflamed. It was aspirated to allow for retraction. The gallbladder was retracted anterior. Lateral attachments were partially taken down further mobilizing the gallbladder more anterior. A thick peritoneal type capsular wall was taken down from the infundibulum of the gallbladder further exposing the infundibulum and allowing manipulation and retraction, right lateral and caudad. Largely with blunt dissection using suction requirements engineer and laparoscopic Kitners the infundibulum and Ana Laura's pouch area was further mobilized right lateral and caudad. A window was carefully created as well as a cystic plate. The cystic duct and cystic artery were carefully exposed. Cystic duct was inspected from the right lateral and left lateral position. The cystic duct was then clipped at the gallbladder, x2, slightly proximal and sharply divided. The cystic artery was similarly clipped and divided. The gallbladder was further mobilized off the liver largely with blunt dissection, followed by cautery. A very small, less than 1 mm tubular structure towards the fundus was clipped and sharply divided. The gallbladder was placed in an EndoCatch bag and brought out through the enlarged epigastric trocar site. There was minimal spillage of bile from the drainage site initially. There was no spillage of stone material. The abdomen was thoroughly irrigated. The fascia at the periumbilical site was closed with a [id number] 0 Vicryl. Trocars were removed under direct vision and CO2 evacuated. Fascia in the epigastrium was closed with a running 0 Vicryl suture. Skin was closed with buried interrupted or running 4-0 Monocryl subcuticular suture. Dressings were applied. He tolerated the procedure very well. TD: 04/17/2020 18:37 SHANNON
--- NOTE | 2020-04-20 16:53 | PROVIDER PROGRESS NOTE ---
Subjective - Prog Note Date Prog Note Date: 04/17/20 - Subjective Subjective: pt was discharged home few hours after surgery. doing well. Objective - Vital Signs/Intake & Output Intake & Output: Intake & Output 04/17/20 04/18/20 04/19/20 04/20/20 23:59 23:59 23:59 23:59 Intake Total 1348.334 Balance 1348.334 - Lab Results Fish Bones: 04/16/20 12:08 04/16/20 12:08
--- NOTE | 2020-04-28 09:46 | PROVIDER PROGRESS NOTE ---
Subjective - Prog Note Date Prog Note Date: 04/17/20 - Subjective Pt reports feeling: Improved Objective - Lab Results Fish Bones: 04/16/20 12:08 04/16/20 12:08 Assessment/Plan - Problem List (1) Cholecystitis Impression: He was discharged a few hours after surgery in good condition. He had significant cholecystitis
== END 2020-04-17 16:20 | disposition home or self-care (01) ==
LOC: ED 11:20 → SDS 18:20 → UNDOADMOB 21:19 → INTOOBSV 21:19 → MS2 21:19
PROVIDERS: ADMIT Surgery; ATTEND Surgery
PROC: 0FT44ZZ Resection of Gallbladder, Percutaneous Endoscopic Approach (ICD-10-PCS; principal; 2020-04-17 09:00)
DX: K80.10 Calculus of gallbladder with chronic cholecystitis without obstruction (principal)
CPT/HCPCS: 36415; 47562; 76705; 80053; 81003; 83690; 85025; 88304; 96361; 96365; 96375; 99285; A9270; J0131; J1170; J7120; 81001; 87086